=== PATIENT | male | born 1980 | race Caucasian/White ===

== ENCOUNTER 2019-06-04 10:22 | Observation (INO) | payer OTHER ==
--- NOTE | 2019-06-04 11:03 | Emergency Department Report ---
ED Lower Extremity HPI - General Chief Complaint: Extremity Injury, Lower Stated Complaint: INJURED ANKLE Time Seen by Provider: 06/04/19 11:03 Source: patient, family Mode of arrival: Wheelchair Limitations: No Limitations - History of Present Illness Initial Comments: 38 yo male fell on his L knee this AM while moving items off the top of a van. He landed direct on the L knee. No LOC. No other injury. No abrasions/lacs. PMH NONE PSH NONE RX NONE NO CIG/ETOH OR THC/DRUG USE MD Complaint: knee injury -: Sudden Injury: Knee: Left Type of Injury: blunt Place: home Severity: severe Improves With: cold therapy, immobilization Worsens With: weight bearing, movement Context: fall - Related Data Home Medications Medication Instructions Recorded Confirmed Last Taken No Known Home Medications [No 06/04/19 06/04/19 Unknown Reported Home Medications] Allergies Allergy/AdvReac Type Severity Reaction Status Date / Time No Known Allergies Allergy Verified 06/04/19 13:22 ED Review of Systems ROS: Stated complaint: INJURED ANKLE Other details as noted in HPI Comment: All other systems reviewed and negative ED Past Medical Hx - Past Medical History Previous Medical History?: No - Surgical History Past Surgical History?: No - Family History Family history: no significant - Social History Smoking Status: Never Smoker Substance Use Type: None - Medications Home Medications: Home Medications Medication Instructions Recorded Confirmed Last Taken Type No Known Home Medications [No 06/04/19 06/04/19 Unknown History Reported Home Medications] ED Physical Exam - General Limitations: No Limitations General appearance: alert - Head Head exam: Present: normocephalic - Eye Eye exam: Present: normal appearance - ENT ENT exam: Present: mucous membranes moist - Neck Neck exam: Present: normal inspection - Respiratory Respiratory exam: Present: normal lung sounds bilaterally - Cardiovascular Cardiovascular Exam: Present: regular rate - GI/Abdominal GI/Abdominal exam: Present: soft - Rectal Rectal exam: Present: deferred - Expanded Lower Extremity Exam Left Hip exam: Present: normal inspection Upper Leg exam: Present: normal inspection Knee exam: Present: tenderness, swelling, erythema, effusion. Absent: full ROM, abrasion, laceration, ecchymosis, deformity, crepidus, dislocation Lower Leg exam: Present: normal inspection Neuro vascular tendon exam: Present: no vascular compromise. Absent: abnormal cap refill Gait: Positive: unable to bear weight - Back Exam Back exam: Present: normal inspection - Neurological Exam Neurological exam: Present: alert, oriented X3, CN II-XII intact, abnormal gait - Psychiatric Psychiatric exam: Present: normal affect, normal mood - Skin Skin exam: Present: warm, dry ED Course Vital Signs 06/04/19 06/04/19 10:46 12:45 Temperature 99.0 F Pulse Rate 70 72 Respiratory 16 17 Rate Blood Pressure 142/82 Blood Pressure 146/86 [Left] O2 Sat by Pulse 100 96 Oximetry ED Lower Extremity MDM - Lab Data Result diagrams: 06/04/19 11:36 06/04/19 11:36 - Radiology Data Radiology results: report reviewed, image reviewed fx patella - Medical Decision Making fracture noted l patella --comminuted pos swelling ice applied/medicated for pain DP plus 2 bilateral Metal Cutter used to update pt on plan of care [address] Sherwood Pt needs to be admitted for OR in AM; per Dr Sherwood Admit to [facility]; NPO p MN immobilizer to Left Leg non weight bearing Dr Mejia updated on plan of care Vital Signs 06/04/19 06/04/19 10:46 12:45 Temperature 99.0 F Pulse Rate 70 72 Respiratory 16 17 Rate Blood Pressure 142/82 Blood Pressure 146/86 [Left] O2 Sat by Pulse 100 96 Oximetry - Differential Diagnosis ro fx patella Critical care attestation.: If time is entered above; I have spent that time in minutes in the direct care of this critically ill patient, excluding procedure time. ED Disposition Clinical Impression: Patella fracture Disposition: OP ADMIT IP TO THIS HOSP Is pt being admited?: Yes Does the pt Need Aspirin: No Condition: Stable Time of Disposition: 12:49
[2019-06-04] MEDS ORDERED: NORCO 10/325 PO ONE (11:29)
[2019-06-04 12:07] LABS: Basophils % (Auto) 0.5 % (0.0-1.8); Eosinophils # (Auto) 0.1 K/mm3 (0.0-0.4); Eosinophils % (Auto) 1.2 % (0.0-4.3); Hematocrit 47.5 % (35.5-45.6); Hemoglobin 16.3 gm/dl (11.8-15.2); Lymphocytes # (Auto) 1.7 K/mm3 (1.2-5.4); Mean Corpuscular HGB Conc 34 % (32-34); Mean Corpuscular Volume 87 fl (84-94); Monocytes # (Auto) 0.6 K/mm3 (0.0-0.8); Monocytes % (Auto) 6.6 % (0.0-7.3); Platelet Count 224 K/mm3 (140-440); Red Blood Count 5.44 M/mm3 (3.65-5.03); Red Cell Distribution Width 14.1 % (13.2-15.2)
[2019-06-04 12:10] LABS: Alanine Aminotransferase 47 units/L (7-56); Albumin 4.7 g/dL (3.9-5); BUN/Creatinine Ratio 20; Blood Urea Nitrogen 18 mg/dL (9-20); Calcium 9.6 mg/dL (8.4-10.2); Hemolysis Index 10
--- NOTE | 2019-06-04 12:20 | XRay Report ---
LEFT KNEE, 4 VIEWS INDICATION: Left knee pain after fall. COMPARISON: None. IMPRESSION: Normal bone mineralization. There is a mildly comminuted fracture through the mid romero la with 1.5 cm separation. The distal femur, proximal tibia and tibia are intact. The joint space is within normal limits otherwise. There is moderate anterior soft tissue swelling. Signer Name: Otto Ramirez Jr, MD Signed: 06/04/2019 12:15 PM Workstation Name: [id number]
[2019-06-04] MEDS ORDERED: TYLENOL PO PRN (13:14)
[2019-06-04] MEDS ORDERED: SODIUM CHLORIDE FLUSH SYRINGE 10 ML IV PRN (13:14)
[2019-06-04] MEDS ORDERED: PROVENTIL IH PRN (13:14)
[2019-06-04] MEDS ORDERED: ZOFRAN IV PRN (13:14)
--- NOTE | 2019-06-04 14:50 | History and Physical Report ---
History of Present Illness Date of admission: 06/04/19 13:14 Chief complaint: My knee hurts History of present illness: 38 YO Male with NO PMH presents to ED for evaluation. Pt states that he was in his usual state of health and was working.Pt states that he fell from the top of a van (Approximately 7feet) and landed on his left knee. Pt reports immediate pain and inability to bear weight on his left leg after the fall to pain. Pt reports knee pain 10/10 with weight bearing. Pt transported to [facility] via private vehicle. Pt seen and evaluated in ED and found to have Comminuted Left Patella Fracture. Pt admitted to surgical floor. Ortho surgery consulted in ED. Pt pending surgical intervention in AM. Pt treated with pain control. Pt denies fever, chills, CP, palpitations, Dizziness, vertigo, seizure, loss of consciousness, or recent ill contacts. No prior admission for review. No medication listed for reconciliation at time of admission. Medications and Allergies Allergies Allergy/AdvReac Type Severity Reaction Status Date / Time No Known Allergies Allergy Verified 06/04/19 13:22 Home Medications Medication Instructions Recorded Confirmed Last Taken Type No Known Home Medications [No 06/04/19 06/04/19 Unknown History Reported Home Medications] Active Meds: Active Medications Acetaminophen (Tylenol) 650 mg PO Q4H PRN PRN Reason: Pain MILD(1-3)/Fever >100.5/TILLMAN Albuterol (Proventil) 2.5 mg IH Q4HRT PRN PRN Reason: Shortness Of Breath Morphine Sulfate (Morphine) 2 mg IV Q4H PRN PRN Reason: Pain, Moderate (4-6) Ondansetron HCl (Zofran) 4 mg IV Q8H PRN PRN Reason: Nausea And Vomiting Oxycodone/Acetaminophen (Percocet 5/325) 1 tab PO Q6H PRN PRN Reason: Pain, Moderate (4-6) Sodium Chloride (Sodium Chloride Flush Syringe 10 Ml) 10 ml IV BID NHUNG Sodium Chloride (Sodium Chloride Flush Syringe 10 Ml) 10 ml IV PRN PRN PRN Reason: LINE FLUSH Review of Systems Constitutional: no weight loss, no weight gain, no fever, no chills Ears, nose, mouth and throat: no ear pain, no ear discharge, no tinnitis, no nose pain, no nasal congestion, no sinus pressure Cardiovascular: no chest pain, no orthopnea, no rapid/irregular heart beat, no edema, no syncope Respiratory: no cough, no cough with sputum, no excessive sputum Gastrointestinal: no nausea, no vomiting, no diarrhea, no change in bowel habits Genitourinary Male: no hematuria, no flank pain, no urinary frequency, no nocturia, no erectile dysfunction Rectal: no pain, no incontinence, no bleeding Musculoskeletal: no neck stiffness, no neck pain, no shooting leg pain, no leg numbness/tingling, no redness of joints Integumentary: no rash, no pruritis, no redness, no sores, no wounds, no jaundice, no boils Neurological: no head injury, no transient paralysis, no paralysis, no weakness, no parathesias, no tingling, no seizures, no syncope Psychiatric: no anxiety, no memory loss, no change in sleep habits, no sleep disturbances, no hypersomnia, no change in appetite, no change in libido, no suicidal ideation Endocrine: no cold intolerance, no heat intolerance, no polyphagia, no polydipsia, no polyuria Hematologic/Lymphatic: no easy bruising, no easy bleeding, no lymphadenopathy Allergic/Immunologic: no urticaria, no wheezing, no persistent infections, no anaphylaxis Exam - Constitutional Vitals: Temp Pulse Resp BP Pulse Ox 99.0 F 72 17 146/86 96 06/04/19 10:46 06/04/19 12:45 06/04/19 12:45 06/04/19 12:45 06/04/19 12:45 General appearance: Present: mild distress - EENT Eyes: Present: PERRL ENT: hearing intact, clear oral mucosa - Neck Neck: Present: supple, normal ROM - Respiratory Respiratory effort: normal Respiratory: bilateral: CTA - Cardiovascular Heart Sounds: Present: S1 & S2. Absent: rub, click - Extremities Extremities: pulses symmetrical, No edema Extremity abnormal: edema (Left knee) Peripheral Pulses: within normal limits - Abdominal General gastrointestinal: Present: soft, non-tender, non-distended, normal bowel sounds Male genitourinary: Present: normal - Integumentary Integumentary: Present: clear, warm, dry - Musculoskeletal Musculoskeletal: gait normal, strength equal bilaterally - Psychiatric Psychiatric: appropriate mood/affect, intact judgment & insight - Neurologic Neurologic: CNII-XII intact, moves all extremities Results - Labs CBC & Chem 7: 06/04/19 11:36 06/04/19 11:36 Labs: Abnormal lab results 06/04/19 06/04/19 Range/Units 11:36 11:36 RBC 5.44 H (3.65-5.03) M/mm3 Hgb 16.3 H (11.8-15.2) gm/dl Hct 47.5 H (35.5-45.6) % Seg Neutrophils % 71.7 H (40.0-70.0) % Glucose 108 H (75-100) mg/dL Assessment and Plan - Patient Problems (1) Patella fracture Current Visit: Yes Status: Acute Qualifiers: Fracture morphology: comminuted Laterality: left Plan to address problem: Ortho consulted, Pain management, NPO after midnight, IVF resuscitation therapy, Surgical intervention in AM. Pt medically optimized. (2) DVT prophylaxis Current Visit: Yes Status: Acute Plan to address problem: SCD to BLE while in bed,
[2019-06-04] MEDS: MORPHINE IV PRN ×2 (18:11→22:33)
[2019-06-04] MEDS: NACL 0.9% 1000 ML 1,000 ML IV SCH (21:13)
[2019-06-04] MEDS: SODIUM CHLORIDE FLUSH SYRINGE 10 ML IV SCH (21:15)
[2019-06-05] MEDS: NACL 0.9% 1000 ML 1,000 ML IV SCH (08:45)
[2019-06-05] MEDS: SODIUM CHLORIDE FLUSH SYRINGE 10 ML IV SCH ×2 (08:45→10:09)
[2019-06-05 09:21] LABS: INR 1.06 (0.87-1.13)
[2019-06-05] MEDS ORDERED: ANCEF/STERILE WATER 2 GM/20 ML IV NR (10:58)
--- NOTE | 2019-06-05 11:40 | Anesthesia Consultation ---
Anesthesia Consult and Med Hx Date of service: 06/05/19 - Airway Anesthetic Teeth Evaluation: Good ROM Head & Neck: Adequate Mental/Hyoid Distance: Adequate Mallampati Class: Class III Intubation Access Assessment: Possibly Difficult - Pulmonary Exam CTA: Yes - Cardiac Exam Cardiac Exam: RRR - Pre-Operative Health Status ASA Pre-Surgery Classification: ASA1 Proposed Anesthetic Plan: General Nerve Block: Adductor canal (possible post op) - Pulmonary Hx Smoking: No Hx Respiratory Symptoms: No - Cardiovascular System Hx Hypertension: No Hx Heart Attack/AMI: No - Central Nervous System CVA: No - Gastrointestinal Hx Gastroesophageal Reflux Disease: No - Endocrine Hx Renal Disease: No Hx Liver Disease: No Hx Insulin Dependent Diabetes: No Hx Non-Insulin Dependent Diabetes: No Hx Thyroid Disease: No - Hematic Hx Anemia: No - Other Systems Hx Obesity: No - Additional Comments Anesthesia Medical History Comments: No hx anesthetic complications. Consented for possible adductor canal block.
--- NOTE | 2019-06-05 11:40 | Anesthesia Day of Surgery ---
Anesthesia Day of Surgery - Day of Surgery Patient Examined: Yes Patient H&P Reviewed: Yes Patient is NPO: Yes
[2019-06-05] MEDS ORDERED: LACTATED RINGERS 1,000 ML IV SCH (12:00)
[2019-06-05] MEDS ORDERED: NEURONTIN PO NR (12:00)
[2019-06-05] MEDS ORDERED: VERSED IV NR (12:00)
[2019-06-05] MEDS ORDERED: DIPRIVAN 10 MG/ML IV ONE (12:40)
[2019-06-05] MEDS ORDERED: XYLOCAINE MPF 2% ONE ×2 (12:40)
[2019-06-05] MEDS ORDERED: DILAUDID ONE (12:40)
[2019-06-05] MEDS ORDERED: NEOSPORIN GU IR ONE (12:44)
[2019-06-05] MEDS ORDERED: MARCAINE-EPI 0.5%-1:200,000 INFILTRATI ONE (12:44)
[2019-06-05] MEDS ORDERED: NACL 0.9% IR ONE ×2 (13:25)
[2019-06-05] MEDS ORDERED: MORPHINE ONE (14:02)
[2019-06-05] MEDS ORDERED: TORADOL ONE ×2 (14:02→14:33)
[2019-06-05] MEDS ORDERED: NACL 0.9% 100 ML ONE (14:03)
[2019-06-05] MEDS ORDERED: NACL 0.9% 50 ML ONE (14:03)
[2019-06-05] MEDS ORDERED: MORPHINE IM ONE (14:25)
[2019-06-05] MEDS ORDERED: TORADOL IV ONE (14:25)
[2019-06-05] MEDS ORDERED: MARCAINE 0.5% INFILTRATI ONE (14:25)
[2019-06-05] MEDS ORDERED: NACL 0.9% 250ML IV ONE (14:25)
[2019-06-05] MEDS ORDERED: LACTATED RINGERS 1,000 ML ONE (14:29)
[2019-06-05] MEDS ORDERED: ZOFRAN ONE (14:33)
[2019-06-05] MEDS ORDERED: MORPHINE IV PRN ×2 (14:49)
--- NOTE | 2019-06-05 14:53 | Procedure Note ---
Date of procedure: 06/05/19 Pre-op diagnosis: Displaced comminuted left patella fracture Post-op diagnosis: same Procedure: Attempted open reduction internal fixation left patella followed by excision of the inferior pole and advancement of the patellar tendon Procedure The patient was brought to your placed in the oral table in supine position following induction and intubation anesthesia patient's left lower extremity was prepped and draped in the usual sterile manner. A timeout procedure was done to identify the patient and the correct operative site. The leg was then exsanguinated followed by instillation of the pneumatic tourniquet to 300 mmHg. A midline incision was made over the patella this is taken down sharply through skin and subcutaneous next the fracture was identified patient was noted to have significant separation of the fracture fragments as well as severe comminution inferior pole. Decision was then made to remove the comminuted fragments from the inferior pole heavy suture wire was used to advance the patella tendon into the proximal pole this was then tied securely with the knee in full extension the medial and lateral patellar retinaculum was repaired followed by closure of the subcutaneous tissue using 0 2-0 Vicryl metallic carol were applied to the skin as well as routine postoperative dressings the patient tolerated the procedure there were no complications he was sent to postanesthesia recovery in stable condition Anesthesia: KIRSTEN Surgeon: SRINI HALL Financial Reserve Clerk: COLBY CORTES Estimated blood loss: minimal Pathology: none Condition: stable Disposition: PACU
[2019-06-05] MEDS ORDERED: SODIUM CHLORIDE FLUSH SYRINGE 10 ML IV SCH (15:00)
[2019-06-05] MEDS: DILAUDID IV PRN ×3 (15:09→15:38)
--- NOTE | 2019-06-05 15:27 | XRay Report ---
LEFT KNEE, 2 VIEWS INDICATION: LT PATELLA FRACTURE/ ORIF. COMPARISON: 06/04/2019 IMPRESSION: 2 fluoroscopic images of the left knee are presented after internal fixation of the campbell llar fracture. Alignment of the patella appears anatomic. The joint space remains unremarkable. Plea se correlate with the procedural report by Dr. Sherwood as needed. Signer Name: Otto Ramirez Jr, MD Signed: 06/05/2019 3:23 PM Workstation Name: [id number]
--- NOTE | 2019-06-05 16:28 | Progress Note ---
Assessment and Plan Assessment and plan: 38 YO Male with NO PMH presents to ED for evaluation. Pt states that he was in his usual state of health and was working.Pt states that he fell from the top of a van (Approximately 7feet) and landed on his left knee. Pt reports immediate pain and inability to bear weight on his left leg after the fall to pain. Pt reports knee pain 10/10 with weight bearing. Pt transported to [facility] via private vehicle. Pt seen and evaluated in ED and found to have Comminuted Left Patella Fracture. Pt admitted to surgical floor. Ortho surgery consulted in ED. Pt pending surgical intervention in AM. Pt treated with pain control. Pt denies fever, chills, CP, palpitations, Dizziness, vertigo, seizure, loss of consc iousness, or recent ill contacts. No prior admission for review. No medication listed for reconciliation at time of admission. - Patient Problems (1) Patella fracture Current Visit: Yes Status: Acute Qualifiers: Fracture morphology: comminuted Laterality: left Plan to address problem: Continue pain control PT/OT POST OP MANAGEMENT S/P Displaced comminuted left patella fracture (2) DVT prophylaxis Current Visit: Yes Status: Acute Plan to address problem: SCD to BLE while in bed, History Interval history: Patient seen and examined, still with some pain post surgery. Hospitalist Physical - Constitutional Vitals: Temp Pulse Resp BP Pulse Ox 98.2 F 90 18 134/91 97 06/05/19 16:03 06/05/19 16:03 06/05/19 16:03 06/05/19 16:03 06/05/19 16:03 General appearance: Present: mild distress - EENT Eyes: Present: PERRL ENT: hearing intact, clear oral mucosa - Neck Neck: Present: supple, normal ROM - Respiratory Respiratory effort: normal Respiratory: bilateral: CTA - Cardiovascular Rhythm: regular Heart Sounds: Present: S1 & S2. Absent: systolic murmur - Extremities Extremities: no ischemia, pulses intact, pulses symmetrical, No edema, normal temperature, normal color, Full ROM Extremity abnormal: other (left lower ext with mobilizer and ruth dressing) Peripheral Pulses: within normal limits - Abdominal General gastrointestinal: soft, non-tender, non-distended, normal bowel sounds - Integumentary Integumentary: Present: clear, warm - Psychiatric Psychiatric: appropriate mood/affect, intact judgment & insight, memory intact - Neurologic Neurologic: CNII-XII intact, focal deficits, moves all extremities (except left lower with dressing in place) - Allied Health Allied health notes reviewed: nursing Results - Labs CBC & Chem 7: 06/04/19 11:36 06/04/19 11:36 Labs: Laboratory Last Values WBC 8.6 K/mm3 (4.5-11.0) 06/04/19 11:36 RBC 5.44 M/mm3 (3.65-5.03) H 06/04/19 11:36 Hgb 16.3 gm/dl (11.8-15.2) H 06/04/19 11:36 Hct 47.5 % (35.5-45.6) H 06/04/19 11:36 MCV 87 fl (84-94) 06/04/19 11:36 MCH 30 pg (28-32) 06/04/19 11:36 MCHC 34 % (32-34) 06/04/19 11:36 RDW 14.1 % (13.2-15.2) 06/04/19 11:36 Plt Count 224 K/mm3 (140-440) 06/04/19 11:36 Lymph % (Auto) 20.0 % (13.4-35.0) 06/04/19 11:36 Bracken % (Auto) 6.6 % (0.0-7.3) 06/04/19 11:36 Eos % (Auto) 1.2 % (0.0-4.3) 06/04/19 11:36 Baso % (Auto) 0.5 % (0.0-1.8) 06/04/19 11:36 Lymph # 1.7 K/mm3 (1.2-5.4) 06/04/19 11:36 Bracken # 0.6 K/mm3 (0.0-0.8) 06/04/19 11:36 Eos # 0.1 K/mm3 (0.0-0.4) 06/04/19 11:36 Baso # 0.0 K/mm3 (0.0-0.1) 06/04/19 11:36 Seg Neutrophils % 71.7 % (40.0-70.0) H 06/04/19 11:36 Seg Neutrophils # 6.2 K/mm3 (1.8-7.7) 06/04/19 11:36 PT 13.5 Sec. (12.2-14.9) 06/05/19 08:59 INR 1.06 (0.87-1.13) 06/05/19 08:59 Sodium 143 mmol/L (137-145) 06/04/19 11:36 Potassium 4.5 mmol/L (3.6-5.0) 06/04/19 11:36 Chloride 102.7 mmol/L (98-107) 06/04/19 11:36 Carbon Dioxide 28 mmol/L (22-30) 06/04/19 11:36 Anion Gap 17 mmol/L 06/04/19 11:36 BUN 18 mg/dL (9-20) 06/04/19 11:36 Creatinine 0.9 mg/dL (0.8-1.5) 06/04/19 11:36 Estimated GFR > 60 ml/min 06/04/19 11:36 BUN/Creatinine Ratio 20 % 06/04/19 11:36 Glucose 108 mg/dL (75-100) H 06/04/19 11:36 Calcium 9.6 mg/dL (8.4-10.2) 06/04/19 11:36 Total Bilirubin 0.30 mg/dL (0.1-1.2) 06/04/19 11:36 AST 34 units/L (5-40) 06/04/19 11:36 ALT 47 units/L (7-56) 06/04/19 11:36 Alkaline Phosphatase 84 units/L (35-129) 06/04/19 11:36 Total Protein 7.6 g/dL (6.3-8.2) 06/04/19 11:36 Albumin 4.7 g/dL (3.9-5) 06/04/19 11:36 Albumin/Globulin Ratio 1.6 % 06/04/19 11:36 Active Medications - Current Medications Current Medications: Generic Name Dose Route Start Last Admin Trade Name Freq PRN Reason Stop Dose Admin Acetaminophen 650 mg 06/04/19 13:14 Tylenol PO Q4H PRN Pain MILD(1-3)/Fever >100.5/TILLMAN Albuterol 2.5 mg 06/04/19 13:14 Proventil IH Q4HRT PRN Shortness Of Breath Cefazolin Sodium 2 gm 06/05/19 10:58 Ancef/Sterile Water 2 Gm/20 Ml IV 06/05/19 22:00 PREOP NR Celecoxib 200 mg 06/05/19 12:00 06/05/19 11:45 Celebrex PO 06/05/19 23:59 200 mg PREOP NR Administration Gabapentin 300 mg 06/05/19 12:00 06/05/19 11:45 Neurontin PO 06/05/19 23:59 300 mg PREOP NR Administration Hydromorphone HCl 0.5 mg 06/05/19 11:40 06/05/19 15:38 Dilaudid IV 06/05/19 23:59 0.5 mg Q10MIN PRN Administration Pain , Severe (7-10) Sodium Chloride 1,000 mls @ 75 mls/hr 06/04/19 20:00 06/05/19 08:45 Nacl 0.9% 1000 Ml IV 75 mls/hr DIRECT NHUNG Administration Lactated Ringer's 1,000 mls @ 100 mls/hr 06/05/19 12:00 06/05/19 11:50 Lactated Ringers IV 100 mls/hr DIRECT NHUNG Administration Midazolam HCl 2 mg 06/05/19 12:00 06/05/19 11:50 Versed IV 06/05/19 23:59 2 mg PREOP NR Administration Morphine Sulfate 2 mg 06/05/19 14:49 Morphine IV Q4H PRN Pain, Moderate (4-6) Morphine Sulfate 4 mg 06/05/19 14:49 Morphine IV Q4H PRN Pain , Severe (7-10) Ondansetron HCl 4 mg 06/04/19 13:14 Zofran IV Q8H PRN Nausea And Vomiting Oxycodone/Acetaminophen 1 tab 06/04/19 13:14 Percocet 5/325 PO Q6H PRN Pain, Moderate (4-6) Sodium Chloride 10 ml 06/04/19 22:00 06/05/19 10:09 Sodium Chloride Flush Syringe 10 Ml IV Not Given BID NHUNG Sodium Chloride 10 ml 06/04/19 13:14 Sodium Chloride Flush Syringe 10 Ml IV PRN PRN LINE FLUSH Sodium Chloride 10 ml 06/05/19 15:00 Sodium Chloride Flush Syringe 10 Ml IV PRN NHUNG
--- NOTE | 2019-06-05 17:14 | Post Anesthesia Evaluation ---
- Post Anesthesia Evaluation Patient Participated: Yes Airway Patent: Yes Stable Respiratory Function: Yes Nausea/Vomiting: No Temp > 96.8F: Yes Pain Manageable: Yes Adequeate Hydration: Yes Anesthesia Complications: No
[2019-06-05] MEDS: PERCOCET 5/325 PO PRN (20:21)
[2019-06-06] MEDS: PERCOCET 5/325 PO PRN ×2 (05:45→12:34)
[2019-06-06] MEDS: SODIUM CHLORIDE FLUSH SYRINGE 10 ML IV SCH ×2 (05:46→10:04)
[2019-06-06] MEDS: NACL 0.9% 1000 ML 1,000 ML IV SCH (10:04)
--- NOTE | 2019-06-06 15:00 | Discharge Summary ---
Providers - Providers Date of Admission: 06/04/19 13:14 Date of discharge: 06/06/19 Attending physician: KERRIE JOSEPH 06/04/19 12:29 Consult to Physician [CONS] Stat Comment: Consulting Provider: SRINI SHERWOOD Physician Instructions: Reason For Exam: patella fracture 06/05/19 14:51 Physical Therapy Evaluation and Treat [CONS] Routine Comment: Reason For Exam: post op evaluation Weight bearing status?: Full wt bearing Assistive devices?: Yes If so list: Crutches Primary care physician: SUPPORT CLERK Hospitalization Condition: Stable Hospital course: (1) Patella fracture Current Visit: Yes Status: Acute Qualifiers: Fracture morphology: comminuted Laterality: left Plan to address problem: Continue pain control PT/OT POST OP deressing--to follow up with Dr Sherwood in 10 days S/P Displaced comminuted left patella fracture F/u with Dr Sherwood in 10 days Disposition: DC-01 TO HOME OR SELFCARE Core Measure Documentation - Palliative Care Palliative Care/ Comfort Measures: Not Applicable - Core Measures Any of the following diagnoses?: none Exam - Constitutional Vitals: Temp Pulse Resp BP Pulse Ox 98.8 F 91 H 20 129/77 96 06/06/19 11:25 06/06/19 11:25 06/06/19 11:25 06/06/19 11:25 06/06/19 11:25 General appearance: Present: no acute distress, well-nourished - EENT Eyes: Present: PERRL ENT: hearing intact, clear oral mucosa - Neck Neck: Present: supple, normal ROM - Respiratory Respiratory effort: normal Respiratory: bilateral: CTA - Cardiovascular Heart rate: 78 Rhythm: regular Heart Sounds: Present: S1 & S2. Absent: rub, click - Extremities Extremities: pulses symmetrical, No edema, abnormal (L knee swelling plus plus) Peripheral Pulses: within normal limits - Abdominal General gastrointestinal: Present: soft, non-tender, non-distended, normal bowel sounds Male genitourinary: Present: normal - Integumentary Integumentary: Present: clear, warm, dry - Musculoskeletal Musculoskeletal: gait normal, strength equal bilaterally - Psychiatric Psychiatric: appropriate mood/affect, intact judgment & insight - Neurologic Neurologic: CNII-XII intact, moves all extremities Plan Activity: no restrictions Weight Bearing Status: Weight Bear as Tolerated Follow up with: PRIMARY CARE, [Primary Care Provider] - 7 Days SRINI SHERWOOD MD [Staff Physician] - 7 Days
[2019-06-06 17:26] VITALS: BP 127/72
== END 2019-06-06 18:00 | disposition home or self-care (01) ==
LOC: ED 10:22 → 3B-SURG 13:14
PROVIDERS: ADMIT Internal Medicine; ATTEND Internal Medicine
DX: S82.042A Displaced comminuted fracture of left patella, initial encounter for closed fracture (principal); V87.8XXA Person injured in other specified noncollision transport accidents involving motor vehicle (traffic), initial encounter; Y93.9 Activity, unspecified; Y92.009 Unspecified place in unspecified non-institutional (private) residence as the place of occurrence of the external cause
CPT/HCPCS: 27524; 36415; 73560; 73564; 80053; 85025; 85610; 96374; 96375; 96376; 97116; 97161; 99284; G0378; J0690; J1170; J1885; J2250; J2270; J2405; J2704; J7030; J7050; J7120